=== PATIENT | male | born 1980 | race Caucasian/White ===

== ENCOUNTER → 2019-12-06 14:48 | Outpatient (CLI) | payer BC, SELFPAY ==
--- NOTE | 2019-12-06 | DI.ECHO.S_ITS ---
[place] [facility]---------[facility] +---------+ : : [address] : : : : [id number] : : : : Phone: [phone]+ Echocardiogram Report + + :Name: HAYLEE MOYA Study Date: 12/06/2019 Height: 74 in : :[facility] Exam Location: IS Weight: 162 lb : : Gender: Male BSA: 2.0 m2 : :: 1980 Age: 39 yrs BP: 105/80 mmHg: :Reason For Study: Congenital aortic stenosis : :Ordering Physician: Ghislaine Tariq : :Vandana Performed By: Kim Page : + + Interpretation Summary 1) Normal left ventricular thickness, size, wall motion, and systolic function (EF 60-65%). 2) The right ventricle is mild to moderately dilated. The right ventricular systolic function is normal. 3) There is mild to moderate aortic stenosis (valve area 1.4cm2, mean gradient 22.9mmHg). 4) There appears to be echogenicity next septal leaflet of the tricuspid valve. There is no independent motion. Trace tricuspid regurigtation present. 5) No prior Echo available for comparison. Procedure: A two-dimensional transthoracic echocardiogram with color flow and Doppler was performed. The study quality was technically adequate. There is no prior echocardiogram noted for this patient. The patient was in normal sinus rhythm during the exam. Left Ventricle: The left ventricle is normal in size and wall thickness. The ejection fraction is estimated to be 60-65%. There are no focal wall motion abnormalities. Right Ventricle: The right ventricle is mild to moderately dilated. The right ventricular systolic function is normal. Atria: The left atrium is borderline dilated. The right atrium is mildly dilated. A prominent eustachian valve is noted. There is no Doppler evidence for an interatrial shunt. Mitral Valve: The mitral valve is normal in structure and function. There is trace mitral regurgitation. Aortic Valve: The patient has a history of an aortic valve repair. The aortic valve is moderately calcified. The peak aortic velocity is 3.1 m/sec. The aortic valve mean gradient is 22.9 mmHg. The calculated aortic valve area is 1.4 cm2. There is mild to moderate aortic stenosis. There is mild aortic regurgitation. Tricuspid Valve: There is trace tricuspid regurgitation. The right ventricular systolic pressure is estimated to be at least 23 mmHg based on an estimated right atrial pressure of 3 mm Hg. Pulmonic Valve: The pulmonic valve is not well visualized. Great Vessels: The aortic root is normal size. The ascending aorta could not be visualized. The pulmonary artery is not well visualized, but is probably normal size. The IVC is of normal diameter and collapses greater than 50% with a sniff. This suggests a low right atrial pressure of 3 mm Hg. Pericardium/ Pleura There is no pericardial effusion. There is no pleural effusion. MMode/2D Measurements & Calculations LVIDd: 4.7 cm LVOT diam: 2.2 cm LVIDs: 3.0 cm Ao root diam: 2.8 cm FS: 37.0 % IVSd: 0.80 cm LVPWd: 0.76 cm LV gresham. diameter/BSA (cm/m^2): 2.4 LV sys. diameter/BSA (cm/m^2): 1.5 LA A2 area: 20.0 cm2 RA long axis: 4.6 cm LA A4 area: 20.1 cm2 RA area: 20.2 cm2 LA length (vol): 5.0 cm RA vol: 75.1 ml LA vol: 68.9 ml RA : 37.8 ml/m2 LA vol index: 34.7 ml/m2 IVC diam: 2.1 cm RVD1 (basal): 4.7 cm RVD2 (mid): 5.2 cm Doppler Measurements & Calculations Ao V2 max: 313.6 cm/sec LVOT Max Pedro: 113.9 cm/sec Ao V2 mean: 227.7 cm/sec LV V1 max P.2 mmHg Ao max P.3 mmHg LV V1 VTI: 21.4 cm Ao mean P.9 mmHg MANJU(I,D): 1.4 cm2 Ao V2 VTI: 57.5 cm MANJU(V,D): 1.4 cm2 sev ratio: 0.37 MANJU indexed to BSA (cm^2/m^2): 0.73 MV E max pedro: 74.8 cm/sec TR max pedro: 224.2 cm/sec MV A max pedro: 52.8 cm/sec TR max P.1 mmHg MV E/A: 1.4 PA V2 max: 85.3 cm/sec Med Peak E' Pedro: 14.9 cm/sec PA V2 mean: 56.9 cm/sec E/E' med: 5.0 PA mean P.5 mmHg Lat Peak E' Pedro: 12.2 cm/sec PA Accel Time: 0.12 sec E/E' lat: 6.1 E/e' average: 5.6 MV P1/2t: 56.6 msec MV P1/2t max pedro: 73.9 cm/sec SV(LVOT): 83.3 ml MVA(P1/2t): 3.9 cm2 Reading Physician:06:49 PM
== END ==
PROVIDERS: Referring Provider Internal Medicine Cardiovascular Disease; Visit Provider Internal Medicine Cardiovascular Disease
DX: I35.2 Nonrheumatic aortic (valve) stenosis with insufficiency (principal); Z95.2 Presence of prosthetic heart valve
CPT/HCPCS: 93306

== ENCOUNTER 2021-03-04 20:37 | Emergency (ER) | payer BC, SELFPAY ==
[2021-03-04 20:52] VITALS: BP 122/77; PULSE 61; RESP 14; TEMP 37.1; O2SAT 100
--- NOTE | 2021-03-04 20:55 | PC.NURSE ---
Pt with Type1 DM well controlled. presents with redness and swelling with scabbed wound to L posterior achilles and lateral 5th digit of R foot. 2+ pulses and states adequate sensation in bilateral feet.
[2021-03-04 22:09] LABS: Add Manual Diff / Slide Review NO; Basophils Absolute Auto 100 /uL (0-100); Basophils Percent Auto 0.9 % (0-2); Eosinophils Absolute Auto 200 /uL (0-450); Eosinophils Percent Auto 1.6 % (2-4); Hematocrit 43.1 % (41-53); Hemoglobin 14.9 g/dL (13.5-17.5); Lactate (Lactic Acid) 1.6 mmol/L (0.7-2.1); Lymphocytes Absolute Auto 2100 /uL (1100-4500); Lymphocytes Percent Auto 22.5 % (25-40); Mean Corpuscular HGB Conc 34.6 % (30-36); Mean Corpuscular Hemoglobin 32.3 PG (26-34); Mean Corpuscular Volume 93.1 fL (80-100); Monocytes Absolute Auto 700 /uL (0-900); Monocytes Percent Auto 7.6 % (3-14); Neutrophils Absolute Auto 6300 /uL (1500-7000); Neutrophils Percent Auto 67.4 % (50-75); Platelet Count 189 X10^3/uL (150-400); Red Blood Cell Count 4.63 X10^6/uL (4.5-5.9); White Blood Cell Count 9.4 X10^3/uL (4.5-11.0)
[2021-03-04 22:10] LABS: Alanine Aminotransferase 40 IU/L (<50); Albumin 4.7 g/dL (3.5-5.0); Albumin Globulin Ratio 1.6 (1.0-2.8); Alkaline Phosphatase 54 U/L (38-126); Aspartate Aminotransferase 41 IU/L (17-59); BUN Creatinine Ratio 23.9 (6-22); Bilirubin Total 0.5 mg/dL (0.2-1.3); Blood Urea Nitrogen 16 mg/dL (9-20); Calcium 9.7 mg/dL (8.4-10.2); Carbon Dioxide 27 mmol/L (22-32); Chloride 103 mmol/L (98-107); Estimated Glomerular Filt Rate > 60.0 mL/min (>60); Glucose 164 mg/dL (70-100); HEMOLYSIS < 15 (0-50); Lipase 49 U/L (23-300); Sodium 141 mmol/L (137-145); Total Protein 7.7 g/dL (6.3-8.2)
[2021-03-04 22:27] LABS: Procalcitonin 0.05 ng/mL (<0.5)
[2021-03-04] MEDS: CLINDAMYCIN 150 MG CAPSULE 300 MG PO (23:15)
--- NOTE | 2021-03-04 23:19 | ED_ITS ---
HPI - Skin/Abscess/Foreign Bdy General Chief complaint: Skin/Abscess/Foreign Body Stated complaint: thinks he has cellulitis Time Seen by Provider: 03/04/21 23:19 Source: patient Mode of arrival: Ambulatory Limitations: no limitations History of Present Illness HPI narrative: This is a 40-year-old male with known history of aortic stenosis at 41-[id number]-[id number] with cardiac repair, late adult onset insulin-dependent diabetes at age 26 and complaint of wound on his heel his left foot with some redness and swelling it has been present for several days as well as a small wound on his right 5th toe with some mild surrounding erythema. Patient states he typically heals very quickly. He states he had some itching on his posterior heel he scratched it and then noted yesterday the wound on the back of his heel. He st ates he has had increasing swelling redness. He denies any other fevers, no chills. No chest pain or shortness of breath. No nausea or vomiting. No other GI or urinary symptoms. He states his sugars have been well controlled with his highest being 200. Patient states he does take lisinopril, aspirin when he remembers it, and insulin for his diabetes. He denies any allergies to medications. He denies any chronic wounds he states both areas are new. He states neither 1 of them is painful. Related Data Previous Rx's Medication Instructions Recorded clindamycin HCl 300 mg PO QID #40 cap 03/04/21 Allergies Allergy/AdvReac Type Severity Reaction Status Date / Time No Known Drug Allergies Allergy Verified 03/04/21 20:55 Review of Systems Review of Systems ROS Unobtainable: All systems reviewed & are unremarkable except as noted in HPI and below Exam Narrative Exam Narrative: GENERAL: Alert and oriented x three, thin, well-appearing male in mild distress. HEENT: Head normocephalic, atraumatic, EOMI, pupils reactive, face symmetric, moist mucous membranes NECK: Supple, full range of motion CARDIOVASCULAR: Regular rate and rhythm without murmurs, rubs or gallops. RESPIRATORY: Breath sounds equal bilaterally, no wheezes rales or rhonchi. ABDOMEN: Soft, nontender. Normoactive bowel sounds all 4 quadrants. No guarding or rebound, rigidity, no mass EXTREMITIES: Normal range of motion, no clubbing or edema. Neurovascularly intact. Patient has a wound on his right heel over the Achilles tendon that is approximately 1 cm high by 3 cm in width. Patient is nontender and appears dry. There is a scab over the area with no purulent drainage. Patient does have some generalized erythema extending from the heel over the dorsum of the foot. He also has some mild swelling of the left ankle in comparison to the right. Patient is nontender to palpation. No bony tenderness. Patient has full range of motion. Positive dorsalis pedis with cap refill less than 2 seconds in all 5 toes. On patient's right foot he has a small wound on the dorsum of the 5th digit she appears open, there is a small amount of serous drainage. There is a very small edge of erythema but not extending beyond. NEUROLOGICAL: Cranial nerves II through XII grossly intact. Moving all extremities SKIN: Warm, dry, no petechiae, no rashes or lesions otherwise noted. Initial Vital Signs Initial Vital Signs: Vital Signs Temperature 98.8 F 03/04/21 20:52 Pulse Rate 61 03/04/21 20:52 Respiratory Rate 14 03/04/21 20:52 Blood Pressure 122/77 03/04/21 20:52 Pulse Oximetry 100 03/04/21 20:52 Course Orders Ordered: ED Orders 03/04/21 20:53 Complete Blood Count AUTO DIFF Stat Comprehensive Metabolic Panel Stat Lactate (Lactic Acid) Stat Lipase Stat Procalcitonin Stat 03/04/21 22:15 Blood Culture Stat Discontinued Medications Clindamycin HCl (Clindamycin 150 Mg Capsule) 300 mg PO NOW ONE Stop: 03/04/21 23:28 Last Admin: 03/04/21 23:15 Dose: 300 mg Documented by: Vital Signs Vital signs: Vital Signs - 8 hr 03/04/21 20:52 03/04/21 23:33 Temperature 98.8 F Pulse Rate 61 76 Respiratory Rate 14 18 Blood Pressure 122/77 131/70 Pulse Oximetry 100 98 MDM - Skin/Abscess/Foreign Bdy Lab Data Attestation: I reviewed the patient's lab results. Result diagrams: 03/04/21 20:53 03/04/21 20:53 Labs: Lab Results 03/04/21 03/04/21 03/04/21 Range/Units 20:53 20:53 20:53 WBC 9.4 (4.5-11.0) X10^3/uL RBC 4.63 (4.5-5.9) X10^6/uL Hgb 14.9 (13.5-17.5) g/dL Hct 43.1 (41-53) % MCV 93.1 (80-100) fL MCH 32.3 (26-34) PG MCHC 34.6 (30-36) % RDW 12.0 (11.6-14.8) % Plt Count 189 (150-400) X10^3/uL Neut % (Auto) 67.4 (50-75) % Lymph % (Auto) 22.5 L (25-40) % [place] % (Auto) 7.6 (3-14) % Eos % (Auto) 1.6 L (2-4) % Baso % (Auto) 0.9 (0-2) % Neut # (Auto) 6300 (0865-6334) /uL Lymph # (Auto) 2100 (8818-9956) /uL [place]y # (Auto) 700 (0-900) /uL Eos # (Auto) 200 (0-450) /uL Baso # (Auto) 100 (0-100) /uL Sodium 141 (137-145) mmol/L Potassium 4.0 (3.4-5.1) mmol/L Chloride 103 (98-107) mmol/L Carbon Dioxide 27 (22-32) mmol/L BUN 16 (9-20) mg/dL Creatinine 0.67 (0.66-1.25) mg/dL Estimated GFR > 60.0 (>60) mL/min BUN/Creatinine Ratio 23.9 H (6-22) Glucose 164 H (70-100) mg/dL Lactate 1.6 (0.7-2.1) mmol/L Calcium 9.7 (8.4-10.2) mg/dL Total Bilirubin 0.5 (0.2-1.3) mg/dL AST 41 (17-59) IU/L ALT 40 (<50) IU/L Alkaline Phosphatase 54 (38-126) U/L Total Protein 7.7 (6.3-8.2) g/dL Albumin 4.7 (3.5-5.0) g/dL Globulin 3.0 (1.7-4.1) g/dL Albumin/Globulin Ratio 1.6 (1.0-2.8) Lipase 49 (23-300) U/L Procalcitonin 0.05 (<0.5) ng/mL MDM Narrative Medical decision making narrative: Discussed with patient patient has 2 wounds likely related to his diabetes, they are in areas that often received a lot of abrasion. Patient states wounds of typically healed well so did not immediately refer him to Wound Care did start him on antibiotics. He was offered dose of IV antibiotics here in the department. He does not appear to be septic or meet any septic criteria. Based on the location the wound on the left ankle it is not over bony prominence. The right toe there is a small ulceration but does not appear to be full-thickness and so x-ray imaging was not ordered. Patient was asked to follow-up in the next week. Return precautions were discussed. Patient defers IV antibiotics here and prefers to start with orals. Discharge Plan Departure Patient Disposition: Home Clinical Impression: Cellulitis of foot, left Open wound of heel Qualifiers: Encounter type: initial encounter Laterality: left Qualified Code(s): S91.302A - Unspecified open wound, left foot, initial encounter Open wound of toe Qualifiers: Encounter type: initial encounter Qualified Code(s): S91.109A - Unspecified open wound of unspecified toe(s) without damage to nail, initial encounter Instructions: DI for Cellulitis -- Adult, Skin Wound Activity Restrictions/Additional Instructions: Follow up in the next week for recheck. Take antibiotics until completely gone. Prescription to [facility] in [place]. If you have pain may take Tylenol up to a 1000 mg every 8 hours as needed. Discussed with your physician if your wounds are not healing quickly if you need to follow-up with wound care. Wound Care: Keep wound(s) clean and dry. Wear a soft protective covering or bandage while wearing shoes. Make sure you have well fitting shoes. Wash daily with soap and water only and pat dry. Do not use over the counter products (alcohol or peroxide)on the wounds unless instructed by a physician. If wound condition worsens (increased/expanding redness, developing fluid blisters, or worsening pain), either contact your doctor for an urgent re- assessment , or return to the Emergency Department. Return if fever greater than 100.4 Fahrenheit, increased swelling, increasing pain or worsening symptoms such as increased discharge or spreading redness. Prescriptions: New clindamycin HCl 300 mg capsule 300 mg PO QID Qty: 40 RF: 0
--- NOTE | 2021-03-04 23:26 | PC.NURSE ---
DR Agee in to exam.
[2021-03-04 23:33] VITALS: BP 131/70; PULSE 76; RESP 18; O2SAT 98
== END 2021-03-04 23:44 | disposition home or self-care (01) ==
PROVIDERS: Emergency Provider Emergency Medicine
DX: L03.116 Cellulitis of left lower limb (principal); S91.302A Unspecified open wound, left foot, initial encounter; S91.104A Unspecified open wound of right lesser toe(s) without damage to nail, initial encounter
CPT/HCPCS: 36415; 80053; 83605; 83690; 84145; 85025; 87040; 99283